=== PATIENT | female | born 1960 | race Caucasian/White ===

== ENCOUNTER 2018-10-21 14:22 | Inpatient (IN) ==
[2018-10-21 15:50] LABS: BASO# 0.03 X1000 (0.0-0.2); BASO% 0.3 % (0.0-0.8); EOS# 0.18 X1000 (0.0-0.7); HEMATOCRIT 37.5 % (37.0-47.0); HEMOGLOBIN 11.5 g/dL (12.0-16.0); LYMPH# 3.21 X1000 (1.2-3.4); LYMPH% 35.5 % (20.5-51.1); MCH 27.4 PG (27-31); MCHC 30.7 g/dL (33-37); MCV 89.5 FL (81-99); MONO# 0.74 X1000 (0.11-0.59); MONO% 8.2 % (1.7-9.3); MPV 10.1 FL (7.4-10.4); NEUT# 4.89 X1000 (1.4-6.5); PLT 297 X1000 (130-400); RBC 4.19 XMIL (4.2-5.4); RDW 15.9 % (11.5-14.5); WBC 9.05 X1000 (4.8-10.8)
--- NOTE | 2018-10-21 15:53 | Diag Imaging Result Doc PS360 ---
EXAM: CHEST-1 VIEW 10/21/2018 HISTORY: Sepsis protocol TECHNIQUE: AP portable upright at 1532 COMMENT: There is cardiomegaly. There is increased perihilar interstitial opacity compared to 05/14/2016. The inspiration is less optimal. The heart size is slightly enlarged. IMPRESSION: Cardiomegaly and pulmonary edema and/or pneumonia. Electronically signed by Thomas Guidry 10/21/2018 3:50 PM
[2018-10-21 16:04] LABS: INR 0.9; PROTIME 12.9 Seconds (11.0-16.0)
[2018-10-21 16:05] LABS: PTT 30.1 Seconds (22.3-41.8)
[2018-10-21] MEDS ORDERED: NARCAN IV ONE ×2 (16:11→17:47)
[2018-10-21 16:16] LABS: AGAP 11; ALB/GLOB RATIO 1.8; ALBUMIN 4.3 g/dL (3.5-5.0); ALKALINE PHOSPHATASE 125 U/L (32-104); BUN 8 mg/dL (8-22); CALCIUM 9.2 mg/dL (8.8-10.2); CHLORIDE 101 mmol/L (98-107); COSMO 283; CREATININE 0.8 mg/dL (0.5-0.9); ESTIMATED GFR > 60; GLUCOSE 92 mg/dL (70-104); GOT 51 U/L (10-30); GPT 32 U/L (10-36); POTASSIUM 3.6 mmol/L (3.5-5.1); SODIUM 143 mmol/L (136-145); TCO2 31 mmol/L (25-35); TOTAL BILIRUBIN 0.29 mg/dL (0.20-1.00); TOTAL PROTEIN 6.7 g/dL (6.3-8.3)
[2018-10-21 17:15] LABS: CK INDEX 1.3 (0.0-2.5); CK-MB 19.69 ng/mL (0.0-5.0)
[2018-10-21] MEDS ORDERED: NS 1,000 ML IV ONE ×2 (17:47→21:47)
--- NOTE | 2018-10-21 18:51 | Diag Imaging Result Doc PS360 ---
CT HEAD W/O CONTRAST - 10/21/2018 INDICATION: AMS COMPARISON: 08/20/2010 FINDINGS: Since the prior exam, there have been development of two fairly large areas of encephalomalacia base of the cortex in the right cerebral hemisphere. These are in the middle cerebral artery territory spanning the frontal and parietal lobes. There are also a couple of old lacunar infarctions in the basal ganglia bilaterally. No intracranial mass or hemorrhage. The skull is intact. The sinuses are grossly clear. IMPRESSION: Rather extensive chronic appearing ischemic changes of the brain worst at the right cerebral hemisphere. These are new since the prior exam of 2010. No acute process. This exam was performed using automated exposure control, adjustment of mA or kV according to patient size, and/or use of iterative reconstruction technique Electronically signed by Homar Bean 10/21/2018 6:49 PM
[2018-10-21 19:08] LABS: URINE SOURCE CATH
[2018-10-21 19:12] LABS: BILIRUBIN URINE NEGATIVE (NEGATIVE); BLOOD URINE NEGATIVE (NEGATIVE); COLOR YELLOW; GLUCOSE URINE NEGATIVE (NEGATIVE); KETONE URINE TRACE mg/dL (NEGATIVE); LEUKOCYTES URINE NEGATIVE (NEGATIVE); NITRITE URINE NEGATIVE (NEGATIVE); PH URINE 5.5; PROTEIN URINE 70 mg/dL (NEGATIVE); SP GRAVITY URINE 1.039; TURBIDITY URINE CLEAR (CLEAR); UR EPITHELIAL CELLS <10 /HPF (<10); URINE BACTERIA NEGATIVE /HPF; URINE RBC <10 /HPF (<10); URINE WBC <10 /HPF (<10); UROBILINOGEN URINE NORMAL (NORMAL)
[2018-10-21] MEDS ORDERED: ATIVAN IV ONE (19:39)
[2018-10-21 20:24] LABS: ALLEN TEST YES; BE 7.1 mmoll (-3.0-3.0); BLOOD TYPE ARTERIAL; HCO3-(ACT) 30.3 mmoll (20.0-26.0); METHB 0.8 % (0.0-1.5); O2(CT) 13.7 mL/dL (15.0-23.0); PCO2(98.6) 49 mmHg (35-45); PO2(98.6) 52 mmHg (60-100); SAMPLE BLOOD; SAO2 91.6 % (95.0-100.0); pH(98.6) 7.43 (7.35-7.45)
[2018-10-21 20:25] LABS: MODALITY CANNULA; O2HB 88.6 % (95.0-99.0)
[2018-10-21 20:41] LABS: ACETAMINOPHEN < 1.2 ug/mL (10-30); SALICYLATES < 3.00 mg/dL (3-10)
[2018-10-21 20:57] LABS: UR AMPHETAMINES QUAL NONE DETECTED (NONE DETECT); UR BARBITUATES QUAL NONE DETECTED (NONE DETECT); UR BENZODIAZEPIN QUAL PRESUMPTIVE POSITIVE (NONE DETECT); UR CANNABINOIDS QUAL NONE DETECTED (NONE DETECT); UR COCAINE QUAL NONE DETECTED (NONE DETECT); UR METHADONE QUAL PRESUMPTIVE POSITIVE (NONE DETECT); UR OPIATES QUAL NONE DETECTED (NONE DETECT); UR OXYCODONE QUAL NONE DETECTED (NONE DETECT); UR PCP QUAL PRESUMPTIVE POSITIVE (NONE DETECT)
[2018-10-21] MEDS ORDERED: ZOFRAN IV PRN (21:43)
[2018-10-21] MEDS ORDERED: SODIUM CHLORIDE 0.9% INJ SCH (21:45)
[2018-10-21] MEDS ORDERED: TYLENOL PR PRN (21:45)
[2018-10-21] MEDS ORDERED: NS 1,000 ML IV SCH (22:00)
[2018-10-21] MEDS: ZOSYN 3.375 GM in NS 50 ML IV SCH (22:28)
[2018-10-21] MEDS: PROTONIX IV SCH (22:39)
[2018-10-21 23:28] LABS: CK INDEX 1.1 (0.0-2.5); CK-MB 9.93 ng/mL (0.0-5.0)
[2018-10-22] MEDS: ZOSYN 3.375 GM in NS 50 ML IV SCH ×4 (02:57→21:55)
[2018-10-22 05:32] LABS: ALLEN TEST YES; BE 6.1 mmoll (-3.0-3.0); BLOOD TYPE ARTERIAL; HCO3-(ACT) 29.7 mmoll (20.0-26.0); METHB 1.2 % (0.0-1.5); O2(CT) 14.9 mL/dL (15.0-23.0); O2HB 96.4 % (95.0-99.0); PO2(98.6) 134 mmHg (60-100); SAMPLE BLOOD; SAO2 99.4 % (95.0-100.0); THB 10.8 g/dL (11.5-17.4); pH(98.6) 7.34 (7.35-7.45)
[2018-10-22 05:33] LABS: MODALITY VENTIMASK; PCO2(98.6) 62 mmHg (35-45)
[2018-10-22] MEDS: LOVENOX SUBQ SCH (05:33)
[2018-10-22 05:47] LABS: BASO# 0.03 X1000 (0.0-0.2); BASO% 0.6 % (0.0-0.8); EOS# 0.16 X1000 (0.0-0.7); EOS% 3.3 % (0.0-10.0); HEMATOCRIT 34.3 % (37.0-47.0); HEMOGLOBIN 10.4 g/dL (12.0-16.0); LYMPH# 1.73 X1000 (1.2-3.4); LYMPH% 35.9 % (20.5-51.1); MCH 27.7 PG (27-31); MCHC 30.3 g/dL (33-37); MCV 91.2 FL (81-99); MONO# 0.24 X1000 (0.11-0.59); MPV 9.8 FL (7.4-10.4); NEUT# 2.66 X1000 (1.4-6.5); NEUT% 55.2 % (42.2-75.2); PLT 235 X1000 (130-400); RBC 3.76 XMIL (4.2-5.4); RDW 16.3 % (11.5-14.5); WBC 4.82 X1000 (4.8-10.8)
[2018-10-22 06:10] LABS: AGAP 7; ALB/GLOB RATIO 1.3; ALBUMIN 3.2 g/dL (3.5-5.0); ALKALINE PHOSPHATASE 100 U/L (32-104); BUN 7 mg/dL (8-22); CALCIUM 8.4 mg/dL (8.8-10.2); CHLORIDE 105 mmol/L (98-107); COSMO 280; CREATININE 0.9 mg/dL (0.5-0.9); ESTIMATED GFR > 60; GLUCOSE 87 mg/dL (70-104); GOT 34 U/L (10-30); GPT 24 U/L (10-36); POTASSIUM 3.8 mmol/L (3.5-5.1); SODIUM 142 mmol/L (136-145); TCO2 30 mmol/L (25-35); TOTAL BILIRUBIN 0.37 mg/dL (0.20-1.00); TOTAL PROTEIN 5.7 g/dL (6.3-8.3)
[2018-10-22 07:57] LABS: CK-MB 5.62 ng/mL (0.0-5.0)
--- NOTE | 2018-10-22 08:16 | HISTORY AND PHYSICAL ---
PRIMARY CARE PROVIDER: Dr. Valdez in [place]. CHIEF COMPLAINT: Altered mental status. HISTORY OF PRESENT ILLNESS: Ms. Julian is a 57-year-old female who was brought to the ER on the afternoon of October 21 at approximately 1422 hours. According to her boyfriend, the patient has been having some upper respiratory symptoms such as cough and congestion and did make an appointment to see her doctor today. Prior to going to her doctor's office she did go by the pain clinic. The patient does take methadone secondary to chronic low back pain. The patient's boyfriend reports that she took her methadone dose at 10 a.m. After leaving the pain clinic they left and went to her physician's office. It was reported from what I understand that in her primary care physician's office that she became confused and did become lethargic. They did call the ambulance and had her brought to the ER. It looks as though according to the health clinic in [place], for which she was at, as well as the ambulance report, that the patient's oxygen saturation was ranging from 82% to 86%. Upon arrival to the ER she was lethargic. She was only responsive to painful stimuli. They did give her two doses of Narcan for which the patient did become more arousable, though she did become agitated at one point, and they did in turn give her Ativan. Her chest x-ray did show that she has cardiomegaly and pulmonary edema and/or pneumonia. CT of the head showed rather extensive chronic-appearing ischemic changes of the brain, worse on the right cerebral hemisphere. There was no acute process noted. Upon my examination the patient was lethargic though she was responsive to painful stimuli with sternal rub. Once awoken she was able to tell me her name was Erica and that she was in [place], [place]. Other than this I was not able to obtain any information from the patient, and she was not able to interact with me or follow commands. She did have some scattered slight crackles on the right though she did have worse crackles on the left. The patient did not have any overt JVD noted. There was no peripheral edema present. The pupils were 3 mm bilaterally and sluggish. The patient's boyfriend was at bedside. They do live together. He reports that she has no known history of taking too much of her medicines in the past. He denied her having any known attempts to harm herself or attempt suicide. He denied her having any known illicit drug use or any alcohol use. The patient was placed in the ICU for inpatient admission. REVIEW OF SYSTEMS: Unfortunately the review of systems was unable to be performed with the patient at this time due to her condition and mentation. Please see above HPI for patient's boyfriend's reported symptoms. PAST MEDICAL HISTORY: 1. Hypertension. 2. COPD. 3. Peripheral neuropathy. 4. Chronic pain. 5. Gastroesophageal reflux disease. 6. Reported history of congestive heart failure. 7. Anxiety. 8. Nicotine dependence. PAST SURGICAL HISTORY: 1. Cholecystectomy. 2. Appendectomy. 3. . SOCIAL HISTORY: The patient is disabled. She does live in [place] with her boyfriend, who was present at bedside. He reports that they have been together for 20 years now. She currently still does smoke one pack of cigarettes per day. There is no known alcohol or illicit drug use per her boyfriend. FAMILY HISTORY: Positive for her father passing away from lung cancer. Her mother from natural causes, old age. HOME MEDICATIONS: We are awaiting her home medication list to be updated and verified. Once done so we will address her medication list. DIAGNOSTIC DATA: White blood cell count is 9050. Hemoglobin 11.5. Hematocrit 37.5. Platelet count is 297,000. PT 12.9. INR 0.9. PTT is 30.1. Sodium 143. Potassium 3.6. Chloride 101. Serum bicarb is 31. BUN 8. Creatinine 0.8. Glucose 92. Calcium 9.2. Liver function tests within normal limits except AST is elevated at 51 and alkaline phosphatase is elevated at 125. CK 1547. CK index is 1.3. CK-MB is 19.69. Troponin was less than 0.01. ProBNP was 99. Plasma lactate is 0.9. Salicylate level is less than 3. Acetaminophen level is less than 1.2. Serum alcohol level is 0. Arterial blood gases were obtained on FIO2 of 28% with a pH of 7.43, pCO2 49, pO2 52, HCO3 is 30.3 with a base excess of 7.1. Oxyhemoglobin is 88.6. O2 saturation is 91.6. Carboxyhemoglobin is 2.6. Urinalysis was obtained via catheter, is positive for protein and ketones, it was otherwise within normal limits. There were no signs of infection noted. Urine drug screen as positive for methadone, [*]and benzodiazepines. The EKG showed sinus tachycardia at a rate of 113 with a QTc of 480. CT of the head showed rather extensive, chronic-appearing ischemic changes of the brain, worse at the right cerebral hemisphere. These were noted to be new since prior exam in 2010, though there was no acute process noted. This was per Radiology. Chest x-ray showed cardiomegaly and pulmonary edema and/or pneumonia. This was per Radiology. PHYSICAL EXAMINATION: VITAL SIGNS: Temperature 99, heart rate 108, respirations 22, and blood pressure 118/69. The oxygen saturation is 92% per nasal cannula at 2 L. GENERAL: Ms. Julian is a 57-year-old female. She was resting in the ER stretcher. She was lethargic upon examination. She was responsive to a sternal rub, once awoken was able to tell me her name and that she was in [place], [place], though other than this was not really able to answer any questions or follow commands at this time. HEENT: The head is normocephalic and atraumatic. The pupils are equal, round, and reactive to light, were 3 mm bilaterally and sluggish. The oral mucosa is moist. NECK: Supple. Trachea midline. There was no overt JVD noted. CARDIOVASCULAR: The patient has an S1, S2 present. No murmurs, rubs, or gallops are appreciated, with a regular rate and rhythm. PULMONARY: The patient has symmetrical chest expansion bilaterally. The lung sounds in bilateral upper roberts are clear though in bilateral lung roberts she did have some scattered slight crackles on the right though there were fine crackles noted throughout the full left lung base. ABDOMEN: Soft, does not appear to be distended, though the patient does have a protuberant abdomen noted. Bowel sounds are present though are hypoactive. GENITOURINARY: The patient does have a Acharya catheter in place at this time. She did have yellow urine noted to the Acharya drainage bag. EXTREMITIES: No cyanosis or edema noted. Pulse and motor is intact in all extremities. Radial pulses and pedal pulses are 2+ bilaterally. INTEGUMENTARY: The patient's skin is pink, warm, and dry. NEUROLOGICAL: The patient is lethargic at this time, is only responsive to painful stimuli by sternal rub. Once awoken she was able to tell me her name and that she was in [place] but other than this was not able to provide any further information at this time or follow commands. She is able to move all extremities though at this time her neurological exam is limited due to her current condition and mentation. ASSESSMENT AND PLAN: 1. Encephalopathy. This could be multifactorial. The patient does take sedative medicines of methadone and reportedly Klonopin. As well, she was noted to be hypoxic and hypercapnic and does have pneumonia as well. At this time we will continue to monitor. We will do frequent neuro checks. Other than the patient's pO2 and oxyhemoglobin being slightly low, she does appear to be stable respiratory claire at this time. We will increase her oxygen by placing her on a Venti-mask at 50% and we will closely monitor her cardiovascular, respiratory and neurological status. 2. Pneumonia. We have obtained blood cultures as well as sputum culture. We will place the patient with antibiotic, Zosyn, given that she may have aspirated as well. 3. [id number] hypercapnic and hypoxic respiratory failure. The patient's pCO2 does appear to be at her baseline though her oxygen is low at this time. She was reportedly on scene in the low to mid 80s, and was still a little low here upon arterial blood gases (ABGs) being done. We have increased her oxygen at this time to a Venti-mask. We will repeat arterial blood gases in the morning. 4. Chronic obstructive pulmonary disease (COPD). The patient does use p.r.n. oxygen at home. We will continue with treatment as mentioned above for #3. We have placed scheduled DuoNeb treatments as well. 5. Chronic pain syndrome. The patient does see a pain clinic and does receive pain medicine of methadone. At this time we are unsure whether or not if she may have possibly taken too much of her medicine. The patient does have pneumonia and was hypoxic. This could be the cause of some of her altered mental status and maybe possibly the pain medication she took this morning may have worsened this, though we are going to hold this medicine at this time until her mentation improves. 6. Nicotine dependence. Once the patient's mentation has improved we will res counselor her on the importance of smoking cessation given her lung disease. 7. Deep venous thrombosis (DVT) prophylaxis is provided with Lovenox 40 mg subcutaneously q.24 h. 8. Gastrointestinal (GI) prophylaxis is provided with Protonix 40 mg intravenously q.24 h. She has been placed in the intensive care unit for close monitoring. We will do vital signs per intensive care unit protocol. She will be on aspiration precautions. We will do strict intake and output, frequent neuro checks. She will be n.p.o. We will repeat a CBC, CMP, and ABG in the morning. Also, the patient's CK was slightly elevated and her troponin was negative. Upon the second draw of this her CK enzymes are trending down, though we will continue with an additional one or two checks of these. We will continue to follow. We will provide some gentle fluid hydration with normal saline at 100 mL per hour. Further orders and recommendations pending hospital course, diagnostic studies, and physician evaluation. Dictated by TOREY Ruiz for Adolfo Kiran MD cc: Adolfo Kiran MD
[2018-10-22] MEDS ORDERED: LASIX IV ONE (08:32)
[2018-10-22] MEDS ORDERED: DUONEB (A & A) INH PRN (09:07)
--- NOTE | 2018-10-22 09:55 | PROGRESS NOTE ---
DATE: 10/22/2018 SUBJECTIVE: Patient is a little bit more awake today. The patient reports taking methadone for chronic back pain issues, but unfortunately for the last 3 to 4 years, she has been on methadone 140. She was not able to wean off from that huge amount of doses of methadone. No acute issues. More awake today. OBJECTIVE: Vital Signs: Temperature 98.5, heart rate 85, respiratory rate 13, blood pressure 96/40, O2 saturation 100% on 5 L nasal cannula. General: This is a 57-year-old female lying in bed, in no acute distress. Cardiovascular: S1, S2 heard. No murmurs, gallops, or rubs. Regular rate and rhythm. Respiratory: Clear bilaterally to auscultation. No work of breathing or using accessory muscles. Minimal crackles in both pulmonary bases. Patient not using any accessory muscles or having work of breathing. Abdomen: Soft. Nondistended, nontender to palpation. Bowel sounds present. No organomegaly. Extremities: No clubbing, cyanosis, or edema. Peripheral pulses present in both legs. Neurological: Patient is a little bit more awake today. Answered questions appropriately. Moves 4 extremities spontaneously. LABORATORY DATA: White cell count 4.82, hemoglobin 10.4, hematocrit 34.3, platelets 234,000 with ABG that shows pH 7.34 with pCO2 of 62, PO2 134. Normal BMP. Albumin is 3.2. UDS positive for benzodiazepine, phencyclidine and methadone. ASSESSMENT AND PLAN: 1. Toxic encephalopathy. Of course, this is related to use of methadone and also Klonopin. Combination of both drugs are big dangers mainly because they can produce severe respiratory depression. On top of that, this patient has COPD so the adverse reaction for both medications taken together can be even much worse. At this time, she is a little bit more awake. 2. Community-acquired pneumonia. Patient is on Zosyn. White cell count is normal. I am not quite sure that was aspiration pneumonia or not but we will continue with the same management. 3. Acute hypercapnic respiratory failure. The CO2 of course after this patient has been obtunded overnight has increased to 64, so I have ordered immediately a BiPAP and we are going to check an ABG in few hours. 4. Chronic obstructive pulmonary disease. Patient is not complaining of any shortness of breath at this time, but considering her elevation on CO2, we are going to start DuoNeb every 4 hours q.2 hours p.r.n. 5. Chronic pain syndrome. As we mentioned before, this patient needs to wean off methadone that she was taking same doses for last 3 to 4 years. I think that is the reason why she is at risk of respiratory depression, at any time considering that she is using huge amounts of that medication. I will definitely leave the decision to modify the dose of that medication to the methadone clinic but, unfortunately the fact she was not able to wean off these high doses for the last 4 years indicates a poor prognosis, but in any case, we will continue to monitor. 6. Nicotine dependence. Patient advised to stop smoking. 7. Deep vein thrombosis prophylaxis on Lovenox. 8. Gastrointestinal prophylaxis on Protonix. 9. Disposition. I think because her blood pressure is a little bit borderline low and the CO2 is elevated, we will keep this patient in the [facility] for today. We will continue to monitor. cc: Je Espinoza MD
--- NOTE | 2018-10-22 10:24 | EKG Report ---
Test Performed on : 10/21/2018 8:14:39 PM Test Reason : ELEVATED CK/MB Blood Pressure : / mmHG Vent. Rate : 113 BPM Atrial Rate : 113 BPM P-R Int : 180 ms QRS Dur : 088 ms QT Int : 350 ms P-R-T Axes : 054 052 090 degrees QTc Int : 480 ms Sinus tachycardia. Septal infarct (cited on or before 14-MAY-2016) Abnormal ECG When compared with ECG of 14-MAY-2016 12:10, Questionable change in initial forces of Septal leads Unconfirmed Result
[2018-10-22 11:09] LABS: ALLEN TEST YES; BE 5.5 mmoll (-3.0-3.0); BLOOD TYPE ARTERIAL; HCO3-(ACT) 29.2 mmoll (20.0-26.0); METHB 0.4 % (0.0-1.5); O2(CT) 14.3 mL/dL (15.0-23.0); O2HB 94.2 % (95.0-99.0); PO2(98.6) 66 mmHg (60-100); SAMPLE BLOOD; SAO2 96.4 % (95.0-100.0); THB 10.8 g/dL (11.5-17.4); pH(98.6) 7.36 (7.35-7.45)
[2018-10-22 11:10] LABS: MODALITY BI PAP; PCO2(98.6) 57 mmHg (35-45)
[2018-10-22] MEDS: DUONEB (A & A) INH SCH ×4 (11:38→23:11)
[2018-10-22] MEDS: TYLENOL PO PRN (17:01)
[2018-10-22] MEDS: PROTONIX IV SCH (21:55)
[2018-10-23] MEDS: TYLENOL PO PRN (01:39)
[2018-10-23] MEDS: DUONEB (A & A) INH SCH ×3 (02:53→11:25)
[2018-10-23] MEDS: ZOSYN 3.375 GM in NS 50 ML IV SCH ×2 (03:31→09:12)
[2018-10-23] MEDS: LOVENOX SUBQ SCH (05:48)
[2018-10-23 07:14] LABS: ALLEN TEST YES; BE 8.4 mmoll (-3.0-3.0); BLOOD TYPE ARTERIAL; HCO3-(ACT) 31.5 mmoll (20.0-26.0); METHB 0.5 % (0.0-1.5); O2(CT) 13.9 mL/dL (15.0-23.0); O2HB 97.4 % (95.0-99.0); PO2(98.6) 108 mmHg (60-100); SAMPLE BLOOD; SAO2 100.1 % (95.0-100.0); pH(98.6) 7.43 (7.35-7.45)
[2018-10-23 07:16] LABS: MODALITY CANNULA; PCO2(98.6) 51 mmHg (35-45)
--- NOTE | 2018-10-23 08:07 | Diag Imaging Result Doc PS360 ---
CHEST-2 VIEWS - 10/23/2018 INDICATION: pulmonary edema COMPARISON: 10/21/2018 FINDINGS: Lung volumes are much improved. There has been improvement in the ill-defined interstitial infiltrates bilaterally. Heart size is top normal. No pneumothorax or pleural effusion. IMPRESSION: Improved lung volumes. Improved bilateral infiltrates. Electronically signed by Homar Bean 10/23/2018 8:05 AM
[2018-10-23 13:42] VITALS: BP 109/57
--- NOTE | 2018-10-23 16:17 | DISCHARGE SUMMARY ---
ADMISSION DATE: 10/21/2018 DISCHARGE DATE: 10/23/2018 DISCHARGE DIAGNOSES: 1. Toxic encephalopathy secondary to unintentional drug overdose with methadone and Klonopin. 2. Aspiration pneumonia improved. 3. Acute on chronic hypercapnic respiratory failure. 4. Chronic obstructive lung disease not on any exacerbation. 5. Chronic pain syndrome. 6. Nicotine dependence. CONSULTATIONS: None. PROCEDURES/IMAGIN. X-ray done on admission showed cardiomegaly and pulmonary edema and/or pneumonia. 2. Chest x-ray done at discharge show improved lung volumes with improved bilateral infiltrates. 3. Head CT done on admission showed a rather extensive chronic appearing ischemic changes of the brain worse at the right cerebral hemisphere that are new since 2010. No acute process. HOSPITAL COURSE: This is basically a 57-year-old female who was brought to the emergency department because she was found sleepy and lethargic. We were not completely sure that this patient has taken more methadone that she is supposed to. She is attending a methadone Clinic for the last 3 years for opiate dependence. She said that at the beginning she was on methadone 130 and today is on 80 mg per day that apparently they are trying to reduce 5 mg per week. The fact that this patient came to the emergency department obtunded, patient was given Narcan and she woke up some. The patient was admitted to the hospital for further evaluation and treatment. The patient woke up slowly. The day after admission we found out that the CO2 was elevated, it was 57. Also blood pressure was borderline low in the range of 80s and 90s systolic blood pressure. At this point, today she is more alert and awake. We were treating her for aspiration pneumonia because this is what the x-ray showed. The patient had bowel white cell count is normal. She is more alert and awake. The patient was explained in detail about the consequence of using both medications Klonopin and methadone together. We explained to her the risk of respiratory depression. She acknowledged understanding. The patient is medically stable. She is going to be discharged in stable condition. DISCHARGE PHYSICAL EXAMINATION: Vital Signs: Temperature 98.6, heart rate 107, respiratory rate 22, blood pressure 101/72, O2 saturation 99% on 2 L nasal cannula. General: This is a chronically ill appearing, 57-year-old female lying in bed, in no acute distress. Cardiovascular: S1, S2 heard. No murmurs, gallops, or rubs. Regular rate and rhythm. Abdomen: Soft, nontender to palpation. Bowel sounds present. No organomegaly. Respiratory: Minimal crackles in both pulmonary bases. Patient is not using any accessory muscles or having work of breathing. Extremities: No clubbing, cyanosis, or edema. Peripheral pulses present in both legs. Neurological: Patient alert oriented x3. Moves 4 extremities. DISCHARGE DISPOSITION: 1. Home to self-care. 2. Follow up with Coumadin Clinic in a week. LIST OF MEDICATIONS: 1. Augmentin 875 mg 1 tablet p.o. daily. 2. ProAir 2 inhalations every 4 hours as needed. 3. Furosemide 40 mg 1 tablet p.o. daily. 4. Omeprazole 40 mg 1 tablet p.o. daily. 5. Lexapro 10 mg 1 tablet p.o. daily. 6. Methadone 80 mg 1 tablet p.o. daily. 7. Iron 200 mg 1 tablet p.o. daily. 8. Gabapentin 100 mg 1 tablet p.o. daily. 9. Clonazepam. Her dosage was 1 mg p.o. twice daily. We are going to reduce the dose to 0.5 mg 1 tablet p.o. daily p.r.n. as needed. I will leave to the Methadone Clinic who is managing her medications to reduce the dosage of that slowly. DISPOSITION: Home to self-care. cc: Je Espinoza MD MTDD
== END 2018-10-23 14:48 | disposition home or self-care (01) | DRG 91 ==
LOC: SUPCPDRO → ED 14:22 → SUATTDRO 21:20 → EDIPHOLD 21:20 → ICU 10-22 01:48
PROVIDERS: ATTEND Internal Medicine
CPT/HCPCS: 51702; 70450; 71010; 71020; 71045; 71046; 80053; 80101; 80196; 80301; 80307; 80320; 80324; 80329; 80345; 80346; 80353; 80358; 80361; 80365; 81001; 82003; 82055; 82550; 82553; 82805; 82948; 83605; 83880; 83992; 84484; 85025; 85610; 85730; 87040; 87275; 87276; 87804; 93005; 94640; 94660; 94762; 96361; 96365; 96375; 99285; A9270; C9113; G0431; G0434; G0479; G0480; G6038; G6039; G6040; J1650; J1940; J2060; J2310; J2543; J7030; S0164; XXXXX